=== PATIENT | female | born 1940 | race American Indian/Alaskan Native ===

== ENCOUNTER 2016-11-13 07:42 | Emergency (ER) | payer MEDICARE ==
[2016-11-13 08:46] LABS: Anion Gap 16 mmol/L; BUN/Creatinine Ratio 27.14; Blood Urea Nitrogen 19 mg/dL (7-17); Calcium 10.3 mg/dL (8.4-10.2); Carbon Dioxide 28 mmol/L (22-30); Chloride 96.6 mmol/L (98-107); Glucose 86 mg/dL (65-100); Potassium 4.4 mmol/L (3.6-5.0); Sodium 136 mmol/L (137-145)
[2016-11-13 08:49] LABS: Basophils % (Auto) 0.2 % (0.0-1.8); Eosinophils % (Auto) 0.4 % (0.0-4.3); Hematocrit 31.3 % (30.3-42.9); Hemoglobin 10.1 gm/dl (10.1-14.3); Mean Corpuscular HGB Conc 32 % (30-34); Mean Corpuscular Hemoglobin 27 pg (28-32); Mean Corpuscular Volume 82 fl (79-97); Platelet Count 135 K/mm3 (140-440); White Blood Count 5.2 K/mm3 (4.5-11.0)
[2016-11-13 10:34] LABS: Urine Drugs of Abuse Note Disclamer
[2016-11-13 10:47] LABS: Bilirubin,Urine NEG (Negative); Blood,Urine NEG (Negative); Ketones,Urine TR mg/dL (Negative); Leukocyte Esterase,Urine NEG (Negative); Mucus,Urine FEW /HPF; Nitrite,Urine NEG (Negative); Urobilinogen,Urine < 2.0 mg/dL (<2.0); WBC,Urine < 1.0 /HPF (0.0-6.0)
--- NOTE | 2016-11-13 10:53 | Emergency Department Report ---
ED General Adult HPI - General Chief complaint: Medical Clearance Stated complaint: MENTAL HEALTH EVAL Time Seen by Provider: 11/13/16 10:45 Source: family, RN notes reviewed Mode of arrival: Ambulatory Limitations: Other (patient is manic, not a very good historian, history is obtained by speaking to patient's sister) - History of Present Illness Initial comments: This is a 75-year-old female. She is previously unknown to me. Past medical history includes arthritis, CVA, diabetes, hypertension, schizophrenia, probable dementia. History is obtained by speaking to the patient's sister, Mrs. Francesca Alarcon ; [phone] As per the patient's sister, the patient has been hyperverbal, not sleeping, running around the house, "she will leave her clothes on." This has been going on since Friday. Symptoms are constant. Patient may be responding to internal stimuli as per the patient's sister. There is no homicidality. There is no suicidality. No cough, fevers or chills. As per sister, patient has been institutionalized in the past for similar symptoms, and she reports that her symptoms today are consistent with prior episodes of decompensated christo. -: Gradual Severity scale (0 -10): 0 Consistency: constant Improves with: none Worsens with: none Associated Symptoms: denies: chest pain, loss of appetite, malaise, nausea/ vomiting, shortness of breath, syncope, weakness - Related Data Home Medications Medication Instructions Recorded Confirmed Last Taken Donepezil [Aricept] 5 mg PO QHS 11/13/16 11/13/16 Unknown Furosemide [Lasix TAB] 40 mg PO QDAY 11/13/16 11/13/16 Unknown Losartan [Cozaar] 50 mg PO QDAY 11/13/16 11/13/16 Unknown Meloxicam [Mobic] 15 mg PO QDAY 11/13/16 11/13/16 Unknown Perphenazine 4 mg PO BID 11/13/16 11/13/16 Unknown Pravastatin Sodium [Pravastatin] 20 mg PO QHS 11/13/16 11/13/16 Unknown Allergies Allergy/AdvReac Type Severity Reaction Status Date / Time aspirin Allergy Unknown Verified 11/13/16 07:52 ED Review of Systems ROS: Stated complaint: MENTAL HEALTH EVAL Other details as noted in HPI Constitutional: denies: fever Eyes: denies: eye discharge ENT: denies: congestion Respiratory: denies: cough Cardiovascular: denies: chest pain Gastrointestinal: denies: vomiting Genitourinary: as per HPI. denies: frequency Musculoskeletal: as per HPI Skin: denies: lesions Neurological: denies: abnormal gait Psychiatric: as per HPI, auditory hallucinations ED Past Medical Hx - Past Medical History Hx Hypertension: Yes Hx CVA: Yes Hx Diabetes: Yes Hx Arthritis: Yes Hx Psychiatric Treatment: Yes (SCHIZOPHRENIA) Additional medical history: HYPERCHOLESTEROLEMIA - Social History Smoking Status: Never Smoker Substance Use Type: None - Medications Home Medications: Home Medications Medication Instructions Recorded Confirmed Last Taken Type Donepezil [Aricept] 5 mg PO QHS 11/13/16 11/13/16 Unknown History Furosemide [Lasix TAB] 40 mg PO QDAY 11/13/16 11/13/16 Unknown History Losartan [Cozaar] 50 mg PO QDAY 11/13/16 11/13/16 Unknown History Meloxicam [Mobic] 15 mg PO QDAY 11/13/16 11/13/16 Unknown History Perphenazine 4 mg PO BID 11/13/16 11/13/16 Unknown History Pravastatin Sodium [Pravastatin] 20 mg PO QHS 11/13/16 11/13/16 Unknown History ED Physical Exam - General Limitations: Other General appearance: in no apparent distress - Head Head exam: Present: atraumatic, normocephalic - Eye Eye exam: Present: normal appearance, EOMI - ENT ENT exam: Present: normal exam, normal orophraynx, mucous membranes moist - Neck Neck exam: Present: normal inspection, full ROM. Absent: tenderness, meningismus - Respiratory Respiratory exam: Present: normal lung sounds bilaterally. Absent: respiratory distress, wheezes, rales, rhonchi, stridor, decreased breath sounds - Cardiovascular Cardiovascular Exam: Present: regular rate, normal rhythm, normal heart sounds. Absent: bradycardia, tachycardia, irregular rhythm, systolic murmur, diastolic murmur, rubs, gallop - GI/Abdominal GI/Abdominal exam: Present: soft, normal bowel sounds. Absent: distended, tenderness, guarding, rebound, rigid, pulsatile mass - Extremities Exam Extremities exam: Present: normal inspection, full ROM, normal capillary refill. Absent: tenderness, pedal edema, joint swelling, calf tenderness - Back Exam Back exam: Present: normal inspection, full ROM. Absent: tenderness, CVA tenderness (R), CVA tenderness (L), muscle spasm, paraspinal tenderness, vertebral tenderness - Neurological Exam Neurological exam: Present: alert, normal gait, other (Extraocular movements intact. Tongue midline. No facial droop. Facial sensation intact to light touch in the V1, V2, V3 distribution bilaterally. 5 and 5 strength in 4 extremities.. Sensation is intact to light touch in 4 extremities.). Absent: motor sensory deficit - Psychiatric Psychiatric exam: Present: anxious, manic - Skin Skin exam: Present: warm, dry, intact, normal color. Absent: rash ED Course Vital Signs 11/13/16 11/13/16 11/13/16 07:46 10:26 10:31 Temperature 97.2 F L Pulse Rate 65 61 Respiratory 18 18 14 Rate Blood Pressure 121/79 Blood Pressure 115/65 [Right] O2 Sat by Pulse 100 100 Oximetry - Reevaluation(s) Reevaluation #1: 11/13/16 12:16 Differential diagnosis: Pneumonia, urinary tract infection, schizophrenia with manic features, decompensated christo Assessment and plan: 75-year-old female who is manic, decompensated, unable to care for herself, this is similar to prior episodes. Laboratory studies reviewed and are unremarkable. Walks with a steady gait. Follows commands. Chest x-ray not consistent with pneumonia, urinalysis not consistent with UTI. 1013 is initiated for inability to care for self. At this point in time, there appears to be no immediate medical contraindication to psychiatric admission/ evaluation. The crisis team was informed. ED Medical Decision Making - Lab Data Result diagrams: 11/13/16 08:09 11/13/16 08:09 Vital Signs 11/13/16 11/13/16 11/13/16 07:46 10:26 10:31 Temperature 97.2 F L Pulse Rate 65 61 Respiratory 18 18 14 Rate Blood Pressure 121/79 Blood Pressure 115/65 [Right] O2 Sat by Pulse 100 100 Oximetry Labs 11/13/16 11/13/16 11/13/16 08:09 08:09 08:09 WBC 5.2 RBC 3.80 Hgb 10.1 Hct 31.3 MCV 82 MCH 27 L MCHC 32 RDW 18.0 H Plt Count 135 L Lymph % (Auto) 14.6 Mora % (Auto) 11.7 H Eos % (Auto) 0.4 Baso % (Auto) 0.2 Lymph # 0.8 L Mora # 0.6 Eos # 0.0 Baso # 0.0 Seg Neutrophils % 73.1 H Seg Neutrophils # 3.8 Sodium 136 L Potassium 4.4 Chloride 96.6 L Carbon Dioxide 28 Anion Gap 16 BUN 19 H Creatinine 0.7 Estimated GFR > 60 BUN/Creatinine Ratio 27.14 Glucose 86 Calcium 10.3 H Urine Color Urine Turbidity Urine pH Ur Specific [place] Urine Protein Urine Glucose (UA) Urine Ketones Urine Blood Urine Nitrite Urine Bilirubin Urine Urobilinogen Ur Leukocyte Esterase Urine WBC (Auto) Urine RBC (Auto) Urine Mucus Urine Opiates Screen Urine Methadone Screen Ur Barbiturates Screen Ur Phencyclidine Scrn Ur Amphetamines Screen U Benzodiazepines Scrn Urine Cocaine Screen U Marijuana (THC) Screen Drugs of Abuse Note Plasma/Serum Alcohol < 0.01 11/13/16 11/13/16 10:21 10:21 WBC RBC Hgb Hct MCV MCH MCHC RDW Plt Count Lymph % (Auto) Mora % (Auto) Eos % (Auto) Baso % (Auto) Lymph # Mora # Eos # Baso # Seg Neutrophils % Seg Neutrophils # Sodium Potassium Chloride Carbon Dioxide Anion Gap BUN Creatinine Estimated GFR BUN/Creatinine Ratio Glucose Calcium Urine Color Yellow Urine Turbidity Clear Urine pH 5.0 Ur Specific [place] 1.020 Urine Protein 30 mg/dl Urine Glucose (UA) 50 Urine Ketones Tr Urine Blood Neg Urine Nitrite Neg Urine Bilirubin Neg Urine Urobilinogen < 2.0 Ur Leukocyte Esterase Neg Urine WBC (Auto) < 1.0 Urine RBC (Auto) 1.0 Urine Mucus Few Urine Opiates Screen Presumptive positive Urine Methadone Screen Presumptive negative Ur Barbiturates Screen Presumptive negative Ur Phencyclidine Scrn Presumptive negative Ur Amphetamines Screen Presumptive negative U Benzodiazepines Scrn Presumptive negative Urine Cocaine Screen Presumptive negative U Marijuana (THC) Screen Presumptive negative Drugs of Abuse Note Disclamer Plasma/Serum Alcohol - Radiology Data Radiology results: report reviewed, image reviewed X-ray of the chest is negative for acute disease Critical care attestation.: If time is entered above; I have spent that time in minutes in the direct care of this critically ill patient, excluding procedure time. ED Disposition Clinical Impression: Medical clearance for psychiatric admission Disposition: DC/TX PSY HOSP/PSY UNIT Is pt being admited?: No Does the pt Need Aspirin: No Condition: Good Referrals: PRIMARY CARE, [Primary Care Provider] - 3-5 Days
--- NOTE | 2016-11-13 11:19 | XRay Report ---
Chest: There is tortuous. The heart is difficult to assess but may be slightly enlarged. There is no vascular congestion and the lungs are generally clear. There is thoracic spondylosis. I have no prior exam for comparison. Impression: No acute findings suspected.
[2016-11-13] MEDS ORDERED: LASIX PO SCH (11:30)
[2016-11-13] MEDS ORDERED: TRILAFON PO SCH (11:30)
[2016-11-13] MEDS ORDERED: COZAAR PO SCH (11:30)
[2016-11-13] MEDS ORDERED: VALIUM IM ONE (11:34)
[2016-11-13] MEDS ORDERED: ATIVAN IM PRN (12:18)
[2016-11-13] MEDS ORDERED: HALDOL ONE (13:31)
[2016-11-13] MEDS ORDERED: HALDOL IM ONE (13:41)
[2016-11-13 20:39] VITALS: BP 107/60
[2016-11-13] MEDS ORDERED: ARICEPT PO SCH (22:00)
[2016-11-13] MEDS ORDERED: NON-FORMULARY (Pravastatin Sodium [Pravastatin] 20 MG) PO SCH (22:00)
[2016-11-13] MEDS ORDERED: ZOCOR PO SCH (22:00)
== END 2016-11-13 22:20 ==
LOC: ED 07:42 → EEVIPCON 07:42 → ED 22:20
DX: Z02.89 Encounter for other administrative examinations (principal); I10 Essential (primary) hypertension; E11.9 Type 2 diabetes mellitus without complications; F20.9 Schizophrenia, unspecified; Z86.73 Personal history of transient ischemic attack (TIA), and cerebral infarction without residual deficits
CPT/HCPCS: 36415; 71010; 80048; 80307; 81001; 85025; 96372; 99285; G0480; J1630; J2060; J3360; 80320

== ENCOUNTER 2016-11-30 19:25 | Emergency (ER) | payer MEDICARE ==
--- NOTE | 2016-11-30 22:59 | Emergency Department Report ---
HPI - General Chief Complaint: Psych Time Seen by Provider: 11/30/16 22:09 - HPI HPI: This is a 76-year-old Afro-Liberian female who presents to the emergency department with her family from a fci with a complaint of possible schizophrenia exacerbation. The patient was recently at [facility] for her schizophrenia and they allegedly felt that she was improved and doing well enough for discharge to a fci. However the fci called family today saying that she is not being cooperative, will not take the medication, is trying to leave the facility, is not eating. Prior to the hospital, the patient was living with one of her brothers but they were unable to take care of her as she would not sleep, not let anybody else sleep and would do some abnormal things like taking off all of her clothes and wandering around the house. Family says that the patient was doing this at the fci as well. ED Past Medical Hx - Past Medical History Hx Hypertension: Yes Hx CVA: Yes Hx Diabetes: Yes Hx Arthritis: Yes Hx Psychiatric Treatment: Yes (SCHIZOPHRENIA) Additional medical history: HYPERCHOLESTEROLEMIA - Surgical History Past Surgical History?: No - Social History Smoking Status: Never Smoker - Medications Home Medications: Home Medications Medication Instructions Recorded Confirmed Last Taken Type Donepezil [Aricept] 5 mg PO QHS 11/13/16 11/30/16 Unknown History Furosemide [Lasix TAB] 40 mg PO QDAY 11/13/16 11/30/16 Unknown History Losartan [Cozaar] 50 mg PO QDAY 11/13/16 11/30/16 Unknown History Meloxicam [Mobic] 15 mg PO QDAY 11/13/16 11/30/16 Unknown History Perphenazine 4 mg PO BID 11/13/16 11/30/16 Unknown History Pravastatin Sodium [Pravastatin] 20 mg PO QHS 11/13/16 11/30/16 Unknown History Nitrofurantoin Garrett/M-Cryst 100 mg PO Q12HR #10 capsule 12/01/16 Unknown Rx [Macrobid CAP] ED Review of Systems ROS: Stated complaint: DISTURB Other details as noted in HPI Comment: All other systems reviewed and negative Constitutional: denies: chills, fever Eyes: denies: eye pain, eye discharge, vision change ENT: denies: ear pain, throat pain Respiratory: denies: cough, shortness of breath, wheezing Cardiovascular: denies: chest pain, palpitations Gastrointestinal: denies: abdominal pain, nausea, diarrhea Genitourinary: denies: urgency, dysuria, discharge Musculoskeletal: denies: back pain, joint swelling, arthralgia Skin: denies: rash, lesions Neurological: denies: headache, weakness, paresthesias Psychiatric: denies: homicidal thoughts, suicidal thoughts Physical Exam - Physical Exam Vital Signs: Vital Signs 11/30/16 20:54 Temperature 97.5 F L Pulse Rate 64 Respiratory 18 Rate Blood Pressure 186/103 Blood Pressure 186/103 [Left] O2 Sat by Pulse 100 Oximetry Physical Exam: GENERAL: The patient is well-developed well-nourished. HEENT: Normocephalic. Atraumatic. Extraocular motions are intact. Patient has moist mucous membranes. Pupils equal reactive to light bilaterally. NECK: Supple. Trachea is midline. CHEST/LUNGS: Clear to auscultation. There is no respiratory distress noted. HEART/CARDIOVASCULAR: Regular. There is no tachycardia. There is no gallop rub or murmur. ABDOMEN: Abdomen is soft, nontender. Patient has normal bowel sounds. There is no abdominal distention. SKIN: Skin is warm and dry. NEURO: Patient is awake but is uncooperative. Patient able to give me her name. When asked about the face and time the patient responds with "18." Withdraws from painful stimuli. MUSCULOSKELETAL: There is no tenderness or deformity. There is no limitation range of motion. There is no evidence of acute injury. PSYCH: Patient will sometimes make eye contact but mostly is staring down at the ground with her eyes open. ED Course Vital Signs 11/30/16 20:54 Temperature 97.5 F L Pulse Rate 64 Respiratory 18 Rate Blood Pressure 186/103 Blood Pressure 186/103 [Left] O2 Sat by Pulse 100 Oximetry ED Medical Decision Making - Lab Data Result diagrams: 11/30/16 22:42 11/30/16 22:42 - Medical Decision Making Is a 76-year-old female with a history of schizophrenia who recently was discharged from [facility] and sent to a fci but then was kicked out of the fci due to her behavior. The patient was apparently combative , inappropriate, taking off her clothes, refusing medication and food, refusing to take part in any activities of daily living. Patient currently is awake and ambulatory but still is not cooperative. She appears to be having some level of psychosis. So far the patient's labs are unremarkable and do not show any etiology of the patient's symptoms. The family feels that they are unable to care for her in this state. The patient also will not take any of her medications at this time to stabilize herself psychiatrically. For these reasons the patient will be made a 1013. We are waiting on urine for the patient but otherwise the patient appears medically stable and cleared for psychiatric placement. She had a elevated blood pressure when she first arrived but on recheck, without any blood pressure medications, it was at a normal level. - Differential Diagnosis schizophrenia, schizoaffective, bipolar disorder, depression, substance abu Critical Care Time: No Critical care attestation.: If time is entered above; I have spent that time in minutes in the direct care of this critically ill patient, excluding procedure time. ED Disposition Clinical Impression: Schizophrenia Qualifiers: Schizophrenia type: unspecified Qualified Code(s): F20.9 - Schizophrenia, unspecified Psychosis Qualifiers: Psychosis type: unspecified psychosis type Qualified Code(s): F29 - Unspecified psychosis not due to a substance or known physiological condition UTI (urinary tract infection) Qualifiers: Urinary tract infection type: acute cystitis Hematuria presence: without hematuria Qualified Code(s): N30.00 - Acute cystitis without hematuria Disposition: DC/TX PSY HOSP/PSY UNIT Is pt being admited?: No Condition: Stable Prescriptions: Nitrofurantoin Garrett/M-Cryst [Macrobid CAP] 100 mg PO Q12HR #10 capsule Time of Disposition: 00:25
[2016-11-30] MEDS ORDERED: CATAPRES PO ONE (23:00)
[2016-11-30 23:16] LABS: Basophils % (Auto) 0.9 % (0.0-1.8); Eosinophils % (Auto) 0.4 % (0.0-4.3); Hemoglobin 11.4 gm/dl (10.1-14.3); Mean Corpuscular HGB Conc 32 % (30-34); Mean Corpuscular Hemoglobin 27 pg (28-32); Mean Corpuscular Volume 83 fl (79-97); Platelet Count 302 K/mm3 (140-440); Red Cell Distribution Width 19.7 % (13.2-15.2); White Blood Count 5.7 K/mm3 (4.5-11.0)
[2016-11-30 23:17] LABS: Anion Gap 17 mmol/L; Blood Urea Nitrogen 14 mg/dL (7-17); Calcium 10.5 mg/dL (8.4-10.2); Carbon Dioxide 27 mmol/L (22-30); Chloride 97.9 mmol/L (98-107); Glucose 84 mg/dL (65-100); Potassium 3.9 mmol/L (3.6-5.0); Sodium 138 mmol/L (137-145)
[2016-12-01 00:27] LABS: Urine Drugs of Abuse Note Disclamer
[2016-12-01 00:46] LABS: Bacteria,Urine 1+ /HPF (Negative); Bilirubin,Urine NEG (Negative); Blood,Urine NEG (Negative); Ketones,Urine TR mg/dL (Negative); Leukocyte Esterase,Urine LG (Negative); Mucus,Urine FEW /HPF; Nitrite,Urine NEG (Negative); Protein,Urine <15 mg/dL mg/dL (Negative)
[2016-12-01] MEDS: MACROBID PO SCH ×2 (10:04→22:05)
--- NOTE | 2016-12-01 12:29 | Consultation ---
History of Present Illness - Reason for Consult Consult date: 12/01/16 Reason for consult: psychiatric evaluation - Chief Complaint Chief complaint: I dont know why Im here 76 year old Malagasy female seen for psychiatric evaluation in the ER. Patient is a poor historian but attempted to be cooperative with the exam. She reports hearing voices from the ozzie and denies this to be distressing. She sees Dr. Lopez for outpatient psychiatric treatment. Collateral indicates she was recently at [facility] and has history of schizophrenia. After her hospitalization she was sent to a residential. Her family was unable to meet the level of care she needed. At the residential she refused her medications and tried to leave. She denies use of alcohol or recreational drugs unable to obtain additional history Mental status exam: Gen. appearance: hospital attire, gait is slow/steady Orientation: Oriented to person Psychomotor activity: normal Involuntary movements: None Speech: Regular rate and rhythm Attitude and behavior: attempted to be cooperative Mood: indifferent Affect: Congruent Thought process: limited in scope Thought content: no SI, no HI Perceptions: AH, non command Memory: unable to complete immediate/recent/remote memory screening Insight: impaired Judgment: impaired Intelligence: unable to assess Ability to perform ADLs: limited Medications and Allergies Allergies Allergy/AdvReac Type Severity Reaction Status Date / Time aspirin Allergy Unknown Verified 11/13/16 07:52 Home Medications Medication Instructions Recorded Confirmed Last Taken Type Donepezil [Aricept] 5 mg PO QHS 11/13/16 11/30/16 Unknown History Furosemide [Lasix TAB] 40 mg PO QDAY 11/13/16 11/30/16 Unknown History Losartan [Cozaar] 50 mg PO QDAY 11/13/16 11/30/16 Unknown History Meloxicam [Mobic] 15 mg PO QDAY 11/13/16 11/30/16 Unknown History Perphenazine 4 mg PO BID 11/13/16 11/30/16 Unknown History Pravastatin Sodium [Pravastatin] 20 mg PO QHS 11/13/16 11/30/16 Unknown History Nitrofurantoin [place]/M-Cryst 100 mg PO Q12HR #10 capsule 12/01/16 Unknown Rx [Macrobid CAP] Active Meds: Active Medications Nitrofurantoin Macrocrystals (Macrobid) 100 mg PO Q12HR MARY Last Admin: 04/16/17 10:04 Dose: 100 mg Mental Status Exam - Vital signs Last Vital Signs Temp 99.1 F 12/01/16 08:30 Pulse 87 12/01/16 08:30 Resp 18 12/01/16 08:30 BP 117/73 12/01/16 08:30 Pulse Ox 100 12/01/16 08:30 Results Result Diagrams: 11/30/16 22:42 11/30/16 22:42 Abnormal lab results 11/30/16 11/30/16 11/30/16 Range/Units 00:05 22:42 22:42 MCH 27 L (28-32) pg RDW 19.7 H (13.2-15.2) % Chloride 97.9 L (98-107) mmol/L Calcium 10.5 H (8.4-10.2) mg/dL Urine WBC (Auto) 25.0 H (0.0-6.0) /HPF All other labs normal. Assessment and Plan Assessment and plan: I dont know why Im here 76 year old Malagasy female with history of schizophrenia. It is unclear if there is underlying dementia as well as chronic mental illness. Schizophrenia unspecified r/o dementia Impression: Plan: 1013 and transfer to inpatient psychiatric facility for further evaluation and treatment of psychiatric condition. Medical provider to treat physical health condition such as UTI.
[2016-12-02] MEDS: MACROBID PO SCH (11:54)
--- NOTE | 2016-12-02 13:50 | Progress Note ---
Subjective - Reason for Consult Consult date: 12/02/16 Reason for consult: Psychaitry Follow-up - Chief Complaint Chief complaint: Patient is nonverbal today" 76 year old Surinamese female seen for psychiatric evaluation in the ER. Today patient is calm and nonverbal. She will not answer my questions when asked. She would look up and down during assessment. Per RN notes, patient has been appropriate since admission. Patient has an hx of schizophrenia per admission note. No gestures of SI/HI's. Patient could be experiencing internal stumuli at this time. Mental Status Exam - Vital signs Last Vital Signs Temp 98.3 F 12/02/16 09:31 Pulse 88 12/01/16 23:00 Resp 14 12/02/16 09:31 BP 121/78 12/02/16 09:31 Pulse Ox 100 12/02/16 09:31 - Exam Narrative exam: MSE: Appearance: Disheveled, uncooperative Behavior: poor eye contact Speech: nonverbal Mood: unable to assess Affect: blunted Thought Process: unable to assess Thought Content: unable to assess Cognition: focused Insight: impaired Judgment: impaired Assessment and Plan Impression: 76 year old Surinamese female seen for psychiatric evaluation in the ER. Today patient is calm and nonverbal. She will not answer my questions when asked. She would look up and down during assessment. Per RN notes, patient has been appropriate since admission. No gestures of SI/HI's. Recommendation/Plan: Continue 1013 and transfer to inpatient psychiatric facility. Start Risperdal 2 mg PO HS for psychosis and Cogentin 0.5 mg PO HS for EPS prophylaxis. UTI is being treated by ER Physician.
[2016-12-02] MEDS: COGENTIN PO SCH (23:08)
[2016-12-03] MEDS ORDERED: HALDOL IM ONE (01:55)
[2016-12-03] MEDS: MACROBID PO SCH ×2 (01:57→09:33)
[2016-12-03] MEDS: RisperDAL PO SCH (01:57)
--- NOTE | 2016-12-03 01:57 | Event Note ---
Date: 12/03/16 Nurse reached out to me for concern about this patient with a history of schizophrenia but is currently awaiting placement for psych. Patient is not been taking in anything by mouth, no fluids and is not been taking any of her medications. She will throw medications aside when given. I spoke to the patient but she was uncooperative and unwilling to take medications. She has a extensive history of schizophrenia and poor compliance. We'll give her a dose of IM Haldol to treat her acute psychosis.
--- NOTE | 2016-12-03 10:07 | Progress Note ---
Subjective - Reason for Consult Consult date: 12/03/16 Reason for consult: Psychiatry Follow-up - Chief Complaint Chief complaint: Patient is nonverbal again today" 76 year old Tajik female seen for psychiatric evaluation in the ER. Today patient would not open here eyes when asked. Per RN notes patient would not take her medications over the past 24 hours. She was assessed over night by the ER doctor because of medication noncompliance. She was given a one time Haldol IM injection at 0155. No gestures of SI/HI's. Patient could be experiencing internal stimuli. Mental Status Exam - Vital signs Last Vital Signs Temp 98.8 F 12/03/16 07:25 Pulse 114 H 12/03/16 07:25 Resp 18 12/03/16 07:25 BP 104/75 12/03/16 07:25 Pulse Ox 98 12/03/16 07:25 - Exam Narrative exam: MSE: Appearance: Disheveled, uncooperative Behavior: poor eye contact Speech: nonverbal Mood: unable to assess Affect: blunted Thought Process: unable to assess Thought Content: unable to assess Cognition: focused Insight: impaired Judgment: impaired Assessment and Plan Impression: 76 year old Tajik female seen for psychiatric evaluation in the ER. Today patient would not open here eyes when asked. Per RN notes patient would not take her medications over the past 24 hours. She was assessed over night by the ER doctor because of medication noncompliance. No gestures of SI/HI 's and AVH's at this time. Recommendation/Plan: Continue 1013 and transfer to inpatient psychiatric facility. Continue Risperdal 2 mg PO HS for psychosis and Cogentin 0,5 mg PO HS for EPS prophylaxis. UTI is being treated by ER Physician. CK serum ordered to help determine further treatment.
[2016-12-04] MEDS: COGENTIN PO SCH ×2 (00:05→22:51)
[2016-12-04] MEDS: RisperDAL PO SCH ×3 (00:30→22:51)
[2016-12-04] MEDS: MACROBID PO SCH ×3 (00:30→22:51)
--- NOTE | 2016-12-04 12:57 | Progress Note ---
Subjective - Reason for Consult Consult date: 12/04/16 Reason for consult: psychiatric follow up - Chief Complaint Chief complaint: "Okay" 76 year old German female seen for psychiatric evaluation in the ER. No gestures of SI/HI's. Patient recalls being told she has memory problems. Otherwise she could not elaborate. She reports no problems with her appetite or sleep. The staff reports that she is not eating unless she has prompted. She requires prompts to go to the bathroom. Otherwise, she will soil herself. The sister provided collateral. She was living with her and became too much for her to handle. She was wandering out of the house, yelling, noncompliant with medications, not sleeping well, and these behaviors are worse at night. Her sister reports the patient as been diagnosed with dementia when she went to [facility] one month ago. She reports the patient has had schizophrenia for years. Her sister reports that her decline in ADLs has been over the last few months and she has not had these behaviors for years. Mental Status Exam - Vital signs Last Vital Signs Temp 97.5 F L 12/03/16 21:31 Pulse 91 H 12/03/16 21:31 Resp 14 12/03/16 21:35 BP 122/88 12/03/16 21:31 Pulse Ox 100 12/03/16 21:35 - Exam Narrative exam: Thought process: limited in scope Orientation: person Affect: flat Mood: other (indifferent) Thought content: other (unable to assess) Perceptions: auditory (hears singing) Speech: slow Concentration: distractible Motor activity: normal Level of consciousness: alert, confused Memory: Recent Impaired Sleep Symptoms: Difficulty Falling Asleep Appetite: decreased Interaction: other (attempts to be cooperative)
--- NOTE | 2016-12-04 17:45 | Progress Note ---
Subjective - Reason for Consult Consult date: 12/04/16 Reason for consult: psychiatric follow up, second progress note - Chief Complaint Chief complaint: "Okay" 76 year old Malian female seen for psychiatric evaluation in the ER. No gestures of SI/HI's. Patient recalls being told she has memory problems. Otherwise she could not elaborate. She reports no problems with her appetite or sleep. The staff reports that she is not eating unless she has prompted. She requires prompts to go to the bathroom. Otherwise, she will soil herself. The sister provided collateral. She was living with her and became too much for her to handle. She was wandering out of the house, yelling, noncompliant with medications, not sleeping well, and these behaviors are worse at night. Her sister reports the patient as been diagnosed with dementia when she went to [facility] one month ago. She reports the patient has had schizophrenia for years. Her sister reports that her decline in ADLs has been over the last few months and she has not had these behaviors for years. Mental Status Exam - Vital signs Last Vital Signs Temp 97.5 F L 12/03/16 21:31 Pulse 91 H 12/03/16 21:31 Resp 14 12/04/16 13:05 BP 122/88 12/03/16 21:31 Pulse Ox 100 12/03/16 21:35 Assessment and Plan "Okay" 76 year old Malian female seen for psychiatric evaluation in the ER. No gestures of SI/HI's. Patient recalls being told she has memory problems. Otherwise she could not elaborate. She reports no problems with her appetite or sleep. The staff reports that she is not eating unless she has prompted. She requires prompts to go to the bathroom. Otherwise, she will soil herself. The sister provided collateral. She was living with her and became too much for her to handle. She was wandering out of the house, yelling, noncompliant with medications, not sleeping well, and these behaviors are worse at night. Her sister reports the patient as been diagnosed with dementia when she went to [facility] one month ago. She reports the patient has had schizophrenia for years. Her sister reports that her decline in ADLs has been over the last few months and she has not had these behaviors for years. Thought process: limited in scope Orientation: person Affect: flat Mood: other (indifferent) Thought content: other (unable to assess) Perceptions: auditory (hears singing) Speech: slow Concentration: distractible Motor activity: normal Level of consciousness: alert, confused Memory: Recent Impaired Sleep Symptoms: Difficulty Falling Asleep Appetite: decreased Interaction: other (attempts to be cooperative) Impression: 76 year old Malian female seen for psychiatric evaluation in the ER. No gestures of SI/HI's. Patient recalls being told she has memory problems. Otherwise she could not elaborate. She reports no problems with her appetite or sleep. The staff reports that she is not eating unless she has prompted. She requires prompts to go to the bathroom. Otherwise, she will soil herself. The sister provided collateral. She was living with her and became too much for her to handle. She was wandering out of the house, yelling, noncompliant with medications, not sleeping well, and these behaviors are worse at night. Her sister reports the patient as been diagnosed with dementia when she went to [facility] one month ago. She reports the patient has had schizophrenia for years. Her sister reports that her decline in ADLs has been over the last few months and she has not had these behaviors for years. Recommendation/Plan: Continue 1013 and transfer to inpatient psychiatric facility. Continue Risperdal 2 mg PO HS for psychosis and Cogentin 0,5 mg PO HS for EPS prevention. UTI is being treated by ER Physician. Collateral indicates the patient may be experiencing dementia with behavioral disturbance and long-standing psychiatric illness of schizophrenia
[2016-12-05] MEDS: MACROBID PO SCH ×2 (10:27→20:55)
--- NOTE | 2016-12-05 10:27 | Progress Note ---
Subjective - Reason for Consult Consult date: 12/05/16 Reason for consult: Psychitary Follow-up - Chief Complaint Chief complaint: "Okay " 76 year old Pakistani female seen for psychiatric evaluation in the ER. No gestures of SI/HI's. Today patient is calm and cooperative with a loose thought process. She state dthat she remember walking around the house and that was it. She don't remember being nonverbal the last 2 days. She could tell me her name , and but could not tell where she is located currently. She has been taken her medications, eating and drinking per the staff mechanical engineer. She denies SI/HI' and VH' s. She stated that she hear "singing in her ear." Per the notes, patient has been resting well. Mental Status Exam - Vital signs Last Vital Signs Temp 97.4 F L 12/05/16 09:22 Pulse 66 12/05/16 09:22 Resp 16 12/05/16 09:24 BP 131/94 12/05/16 09:22 Pulse Ox 100 12/05/16 09:24 - Exam Narrative exam: MSE: Appearance: Disheveled, calm, cooperative Behavior: good eye contact Speech: regular rate and tone Mood: "okay" Affect: flat Thought Process: loose Thought Content: denies SI/HI's, + AH's Motor Activity: sitting up in chair Cognition: focused Insight: poor Judgment: poor Assessment and Plan Impression: 76 year old Pakistani female seen for psychiatric evaluation in the ER. No gestures of SI/HI's. Today patient is calm and cooperative with a loose thought process. She state dthat she remember walking around the house and that was it. She don't remember being nonverbal the last 2 days. She could tell me her name , and but could not tell where she is located currently. She has been taken her medications, eating and drinking per the staff mechanical engineer. She denies SI/ HI' and VH's. Patient has not tried to wander off per staff. Recommendation/Plan: Continue 1013 and transfer to inpatient psychiatric facility. Continue Risperdal 2 mg PO HS for psychosis and Cogentin 0,5 mg PO HS for EPS prevention. UTI is being treated by ER Physician. Discussed metabolic side effects with patient reference risperdal. Tool Distributor involvement with possible placement.
[2016-12-05] MEDS: RisperDAL PO SCH (20:55)
[2016-12-05] MEDS: COGENTIN PO SCH (20:55)
[2016-12-06] MEDS: MACROBID PO SCH ×2 (11:25→21:55)
--- NOTE | 2016-12-06 17:00 | Progress Note ---
Subjective - Reason for Consult Consult date: 12/06/16 Reason for consult: Psychiatry Follow-up - Chief Complaint Chief complaint: "Just relaxing " 76 year old [place]i female seen for psychiatric evaluation in the ER. No gestures of SI/HI's. Today patient is calm and cooperative during assessment. I asked her would she like to return back home with her sister, she stated "yes." She was able to tell me her brother and sister names. with a loose thought process. She stated that she ate crackers earlier today drink juice. She denies SI/HI's and VH's, but still hear singing in her ears. Per the staff internist office based only, patient has been appropriate all day. She denies being depressed or having sleep issues at this time. u Mental Status Exam - Vital signs Last Vital Signs Temp 97.6 F 12/06/16 14:13 Pulse 69 12/06/16 14:13 Resp 16 12/06/16 14:13 BP 120/80 12/06/16 14:13 Pulse Ox 99 12/06/16 14:13 - Exam Narrative exam: MSE: Appearance: calm, cooperative Behavior: good eye contact Speech: regular rate and tone Mood: "okay" Affect: flat Thought Process: loose Thought Content: denies SI/HI's, + AH's Motor Activity: sitting up in chair Cognition: focused Insight: poor Judgment: poor Assessment and Plan Impression: 76 year old [place] female seen for psychiatric evaluation in the ER. No gestures of SI/HI's. Today patient is calm and cooperative during assessment. I asked her would she like to return back home with her sister, she stated "yes." She was able to tell me her brother and sister names. with a loose thought process. She stated that she ate crackers earlier today drink juice. She denies SI/HI's and VH's, but still hear singing in her ears. Recommendation/Plan: Continue 1013 and transfer to inpatient psychiatric facility. Continue Risperdal 2 mg PO HS for psychosis and Cogentin 0.5 mg PO HS for EPS prevention. UTI is being treated by ER Physician. Discussed metabolic side effects with patient reference risperdal. Yarder Operator involvement with possible placement.
--- NOTE | 2016-12-06 19:09 | Event Note ---
Date: 12/06/161714 I spoke with the patient's brother Lionel Allison. He stated that it would be hard to take care his sister Ms Ames. She resided with him in the past and she would not take her meds and wander off. He did not feel comfortable leaving her in the house alone.
[2016-12-06] MEDS: COGENTIN PO SCH (21:55)
[2016-12-06] MEDS: RisperDAL PO SCH (21:55)
[2016-12-07] MEDS: MACROBID PO SCH ×2 (11:00→22:38)
--- NOTE | 2016-12-07 18:41 | Progress Note ---
Subjective - Reason for Consult Reason for consult: psych consult - Chief Complaint Chief complaint: 76 year old BF with hisotry of scpt and cognitive issues. Patient currently notes no Si/HI/AH/VH. She continues to note no concerns with her meds. There is some concern over her disposition- pt would lke to return home but the family notes that can't take care of the patient any longer. No issues with sleep or appetite. Mental Status Exam - Vital signs Last Vital Signs Temp 98 F 12/07/16 11:06 Pulse 72 12/07/16 11:06 Resp 16 12/07/16 11:10 BP 140/86 12/07/16 11:06 Pulse Ox 99 12/07/16 11:10 - Exam Orientation: time, place, person Affect: normal Mood: appropriate Thought content: other (impoverished) Thought Process: Intact Perceptions: none Speech: normal rate and pattern Concentration: distractible Motor activity: normal Level of consciousness: alert Memory: Intact Interaction: cooperative Assessment and Plan 76 year old BF with history of scpt. Currently patient is stable with her medications. She has shown no aggression or paranoia. The nurses note no issues from her in the ER. She denies any SI/HI/AH/VH psychosis: continue meds as directed dispo: patient required placement
[2016-12-07] MEDS: COGENTIN PO SCH (22:38)
[2016-12-07] MEDS: RisperDAL PO SCH (22:38)
[2016-12-08] MEDS: MACROBID PO SCH (10:17)
--- NOTE | 2016-12-09 08:01 | Progress Note ---
Subjective - Reason for Consult Consult date: 12/09/16 Reason for consult: Psychiatry Follow-up - Chief Complaint Chief complaint: "When will I leave" 76 year old BF with hisotry of scpt and cognitive issues. Today patient is calm , cooperative with a circumstantial thought process. She denies SI/HI's and VH' s at this time. She does admits to hearing "good singing" in her ears. She denies any side effects from her medications. There is some concern over her disposition- pt would lke to return home but the family notes that can't take care of the patient any longer. No issues with sleep or appetite. Mental Status Exam - Vital signs Last Vital Signs Temp 97.5 F L 12/08/16 21:44 Pulse 68 12/08/16 21:44 Resp 20 12/09/16 06:05 BP 151/99 12/08/16 21:44 Pulse Ox 100 12/09/16 06:05 - Exam Narrative exam: MSE: Appearance: calm, cooperative Behavior: good eye contact Speech: regular rate and tone Mood: "I am well" Affect: flat Thought Process: circumstantial Thought Content: denies SI/HI's, + AH's Motor Activity: sitting up in bed Cognition: focused Insight: poor Judgment: fair Assessment and Plan Impression: 76 year old BF with hisotry of scpt and cognitive issues. Today patient is calm, cooperative with a circumstantial thought process. She denies SI/HI's and VH's at this time. She does admits to hearing "good singing" in her ears. She denies any side effects from her medications. Recommendation/Plan: Continue Risperdal 2 mg PO HS for psychosis and Cogentin 0.5 mg PO HS for EPS prevention. Grain Packer involvement with placement of patient.
--- NOTE | 2016-12-09 11:12 | XRay Report ---
ROUTINE CHEST, TWO VIEWS: HISTORY: chest pain. The trachea, heart, mediastinal contour, lung castellanos and bony thorax are unremarkable. IMPRESSION: No acute process noted.
[2016-12-09] MEDS ORDERED: LASIX ONE (19:36)
[2016-12-09] MEDS: COZAAR PO SCH (19:45)
[2016-12-09] MEDS: LASIX PO SCH (19:45)
[2016-12-09] MEDS ORDERED: COGENTIN PO SCH (22:00)
[2016-12-09] MEDS ORDERED: RisperDAL PO SCH (22:00)
[2016-12-10 08:32] VITALS: BP 140/95
--- NOTE | 2016-12-10 09:54 | Progress Note ---
Subjective - Reason for Consult Consult date: 12/10/16 Reason for consult: Psychiatry Follow-up - Chief Complaint Chief complaint: "Leaving today" 76 year old BF with hisotry of scpt and cognitive issues. Today patient is calm , cooperative with a circumstantial thought process. She denies SI/HI's and VH' s at this time. She still admit to hearing "good singing" in her ears that is "creole" per the patient. She denies any side effects from her medications. per RN notes no distress ovenight. The patient would like to return home but the family notes that they can't take care of the her any longer. No issues with sleep or appetite. Mental Status Exam - Vital signs Last Vital Signs Temp 97.3 F L 12/10/16 08:31 Pulse 63 12/10/16 08:31 Resp 18 12/10/16 08:31 BP 140/95 12/10/16 08:31 Pulse Ox 100 12/10/16 08:31 - Exam Narrative exam: MSE: Appearance: calm, cooperative Behavior: good eye contact Speech: regular rate and tone Mood: "I am ok" Affect: flat Thought Process: circumstantial Thought Content: denies SI/HI's, + AH's Motor Activity: sitting up in bed Cognition: focused Insight: fair Judgment: fair Assessment and Plan Impression: 76 year old BF with hisotry of scpt and cognitive issues. Today patient is calm, cooperative with a circumstantial thought process. She denies SI/HI's and VH's at this time. She still admit to hearing "good singing" in her ears that is "creole" per the patient. She denies SI/HI's and AVH's. Recommendation/Plan: Continue Risperdal 2 mg PO HS for psychosis and Cogentin 0.5 mg PO HS for EPS prevention. Branch Assistant involvement with placement of patient.
[2016-12-10] MEDS: LASIX PO SCH (09:59)
[2016-12-10] MEDS: COZAAR PO SCH (12:22)
== END 2016-12-10 13:01 | disposition home or self-care (01) ==
LOC: EEVIPCON 19:25 → ED 19:25
DX: F20.9 Schizophrenia, unspecified (principal); F29 Unspecified psychosis not due to a substance or known physiological condition; N30.00 Acute cystitis without hematuria; I10 Essential (primary) hypertension; E11.9 Type 2 diabetes mellitus without complications; M19.90 Unspecified osteoarthritis, unspecified site; E78.00 Pure hypercholesterolemia, unspecified; Z86.73 Personal history of transient ischemic attack (TIA), and cerebral infarction without residual deficits
CPT/HCPCS: 36415; 71020; 80048; 80307; 81001; 82550; 82962; 85025; 96372; 99284; G0480; J1630; 80320